=== PATIENT | male | born 1940 | race Caucasian/White ===

== ENCOUNTER 2020-04-06 00:50 | Outpatient (CLI) | payer OTHER, SELFPAY ==
[2020-04-06 19:48] LABS: SARS-CoV-2 RNA PCR Negative
== END 2020-04-06 00:51 | disposition home or self-care (01) ==
LOC: ANHCOVIDDT 00:50
PROVIDERS: PCP Internal Medicine; Visit Provider Internal Medicine Gastroenterology
DX: Z01.818 Encounter for other preprocedural examination (principal); Z20.828 Contact with and (suspected) exposure to other viral communicable diseases
CPT/HCPCS: 87635; C9803; U0003

== ENCOUNTER 2020-04-09 01:19 | Day surgery (SDC) | payer OTHER, SELFPAY ==
[2020-04-02 15:54] VITALS: BMI 26.3
--- NOTE | 2020-04-09 08:17 | WPDANESEPPF ---
Anes - Initial Pre Proc Eval Procedure: Operation Date: 04/09/20 09:30 Proposed Procedures p Esophagogastroduodenoscopy & Colonoscopy - Atif Meza MD Date/Time: 04/09/20 08:17 Surgeon: Atif Meza MD Pre Op Diagnosis: Iron Deficiency Anemia/Rectal Bleeding Patient Data Age: 79 Gender: M Height: 1.83 m Weight: 88 kg Allergies Allergy/AdvReac Type Severity Reaction Status Date / Time COLLAGEN Allergy Intermediate Unknown Uncoded 04/09/20 08:20 Home Medications Medication Instructions Recorded Confirmed Type aspirin 81 mg PO DAILY 04/02/20 04/02/20 History carvedilol 6.25 mg PO DAILY 04/02/20 04/02/20 History clopidogrel 75 mg PO DAILY 04/02/20 04/02/20 History furosemide 20 mg PO DAILY 04/02/20 04/02/20 History losartan 50 mg PO DAILY 04/02/20 04/02/20 History rosuvastatin 10 mg PO DAILY 04/02/20 04/02/20 History spironolactone 25 mg PO DAILY 04/02/20 04/02/20 History sulfamethoxazole-trimethoprim 1 tablet PO DAILY 04/02/20 04/09/20 History Patient hx anesthesia problems: none Family hx anesthesia problems: none PMFSH Past Medical History Medical History (Updated 04/09/20 @ 08:25 by Miguel Graves MD) Angina pectoris Atrial fibrillation CAD (coronary artery disease) HTN (hypertension) Hx of myocardial infarction DEONNA on CPAP Osteoarthritis Overweight (BMI 25.0-29.9) Psoriasis PUD (peptic ulcer disease) Surgical History Surgical History (Updated 04/09/20 @ 08:19 by Miguel Graves MD) AICD (automatic cardioverter/defibrillator) present S/P CABG (coronary artery bypass graft) Social History Social History Smoking packs per day: 1 Smoking cigarettes per day: 20.0 Years smoked: 20 Smoking pack-years: 20.00 Smoking status: Former smoker Tobacco type: cigarettes Smoking end date: 05/28/88 Alcohol intake: current Drinks per week: 14 Alcohol use details: HARD LIQUOR Substance use: never Substance use type: does not use Living arrangements: with family Spiritual care concerns: No Anes - Eval Final PreProcedure Day of Procedure 04/09/20 08:17 Patient weight: overweight Heart: regular rate and rhythm Lungs: clear to auscultation and normal air movement Airway: Mallampati scale class II Neurological: alert and oriented Last oral intake: >/= 8 hours ASA classification: III Emergent: no Anesthetic plan: proceed Anesthesia type and monitoring: general GIVS Informed Consent: The patient's anesthetic plan and its attendant risks and benefits were discussed with the patient/family/POA. Questions were solicited and answers provided to the satisfaction of the patient/family/POA.
[2020-04-09 08:22] VITALS: BP 129/58; PULSE 66; RESP 16; TEMP 36.7; O2SAT 100; BMI 26.8
[2020-04-09] MEDS: LACTATED RINGERS 1,000 ML 150 ML IV CONT (08:55)
[2020-04-09] MEDS: BENZOCAINE (*SP) 60 ML SPRAY CAN (HURRICAINE) 1 SPRAY MUCOUS MEM (09:07)
--- NOTE | 2020-04-09 09:11 | WPDGICN ---
Assessment and Plan Assessment and plan (1) GI bleeding: Code(s): K92.2 - Gastrointestinal hemorrhage, unspecified Status: Acute Assessment and Plan: Patient has had bright red blood per rectum for 1 year. Plan is for colonoscopy to assess more thoroughly. Further recommendations will be given after endoscopy. (2) POLI (iron deficiency anemia): Code(s): D50.9 - Iron deficiency anemia, unspecified Status: Acute Assessment and Plan: Patient with iron deficiency anemia. Plan is for both colonoscopy an EGD to assess for source of anemia. Further recommendations will be given after endoscopy. GI Consult Note Consult date/time: 04/09/20 09:11 HPI: Marc Woods is a 79 year old male Seen in evaluation at the request of Dr. Good Dotson, patient reports bright red blood per rectum on a rather daily basis. He states as often a large amount. He denies any abdominal or rectal pain. Symptoms have been present for 1 year. Recently found to have iron deficiency anemia. Patient denies any abdominal pain. He has had no bleeding. Patient reports in the past he had bleeding etiology of this he is unaware of. Review of Systems Review of Systems: All systems reviewed & are unremarkable except as noted in HPI and below PMFSH Past Medical History Medical History (Updated 04/09/20 @ 09:13 by Atif Meza MD) Angina pectoris Atrial fibrillation CAD (coronary artery disease) HTN (hypertension) Hx of myocardial infarction DEONNA on CPAP Osteoarthritis Overweight (BMI 25.0-29.9) Psoriasis PUD (peptic ulcer disease) Surgical History Surgical History (Updated 04/09/20 @ 08:19 by Miguel Graves MD) AICD (automatic cardioverter/defibrillator) present S/P CABG (coronary artery bypass graft) Social History Social History Smoking packs per day: 1 Smoking cigarettes per day: 20.0 Years smoked: 20 Smoking pack-years: 20.00 Smoking status: Former smoker Tobacco type: cigarettes Smoking end date: 05/28/88 Alcohol intake: current Drinks per week: 14 Alcohol use details: HARD LIQUOR Substance use: never Substance use type: does not use Living arrangements: with family Spiritual care concerns: No Meds Home Medications and Allergies Home Medications Medication Instructions Recorded Confirmed Type aspirin 81 mg PO DAILY 04/02/20 04/02/20 History carvedilol 6.25 mg PO DAILY 04/02/20 04/02/20 History clopidogrel 75 mg PO DAILY 04/02/20 04/02/20 History furosemide 20 mg PO DAILY 04/02/20 04/02/20 History losartan 50 mg PO DAILY 04/02/20 04/02/20 History rosuvastatin 10 mg PO DAILY 04/02/20 04/02/20 History spironolactone 25 mg PO DAILY 04/02/20 04/02/20 History sulfamethoxazole-trimethoprim 1 tablet PO DAILY 04/02/20 04/09/20 History Allergies Allergy/AdvReac Type Severity Reaction Status Date / Time COLLAGEN Allergy Intermediate Unknown Uncoded 04/09/20 08:20 Vital Signs Vital Signs - 24 hr 04/09/20 08:22 Temperature 98.0 F Pulse Rate 66 Respiratory Rate 16 Blood Pressure 129/58 L Pulse Oximetry 100 Exam Narrative: Exam Narrative: Physical exam reveals patient to be alert. Vital signs stable. HEENT exam unremarkable. Lungs are clear to auscultation and percussion. Heart is without murmur or extra sounds. Abdominal exam bowel sounds present soft nontender with no organomegaly. Digital external rectal exam normal.
[2020-04-09 09:39] VITALS: BP 89/53; PULSE 65; RESP 20; O2SAT 100
[2020-04-09 09:49] VITALS: BP 99/61; PULSE 65; RESP 16; O2SAT 100
[2020-04-09 09:59] VITALS: BP 102/59; PULSE 67; RESP 20; O2SAT 100
== END 2020-04-09 10:31 | disposition home or self-care (01) ==
PROVIDERS: PCP Internal Medicine; Visit Provider Internal Medicine Gastroenterology
PROC: 0DJ08ZZ Inspection of Upper Intestinal Tract, Via Natural or Artificial Opening Endoscopic (ICD-10-PCS; CPT 43235; principal; 2020-04-09 09:30)
DX: K26.9 Duodenal ulcer, unspecified as acute or chronic, without hemorrhage or perforation (principal); D50.9 Iron deficiency anemia, unspecified; I48.91 Unspecified atrial fibrillation; I25.10 Atherosclerotic heart disease of native coronary artery without angina pectoris; I10 Essential (primary) hypertension; I25.2 Old myocardial infarction; G47.33 Obstructive sleep apnea (adult) (pediatric); L40.9 Psoriasis, unspecified; Z95.1 Presence of aortocoronary bypass graft; Z95.810 Presence of automatic (implantable) cardiac defibrillator; Z87.891 Personal history of nicotine dependence; Z79.82 Long term (current) use of aspirin; Z79.02 Long term (current) use of antithrombotics/antiplatelets
CPT/HCPCS: 43239; 87081; J2704; J7120

== ENCOUNTER 2022-06-01 15:05 | Emergency (ER) | payer OTHER, SELFPAY ==
[2022-06-01] VITALS (14 sets, daily range): BP systolic 101–144; BP diastolic 49–74; PULSE 65–79; RESP 15–22; TEMP 36.3; O2SAT 96–100
--- NOTE | ~2022-06-01 | CT_ITS ---
EXAMINATION: CT abdomen pelvis w con DATE: 06/01/2022 18:00 INDICATION: Abdominal pain TECHNIQUE: Computed tomography (CT) of the abdomen and pelvis was performed with 100 cc Omnipaque 350 intravenous contrast. The dose-length product was 619.59 mGy-cm. Automated exposure control and iter ative reconstruction technique were employed. COMPARISON: CT dated 10/02/2013. FINDINGS: Cardiomegaly. Chronic right pleural thickening with calcification. There is dependent atele ctasis. Moderate diffuse atherosclerosis of the aorta without evidence for aneurysm. There is a fat-c ontaining umbilical hernia. There is a fat-containing right inguinal hernia. Fatty infiltration of the liver. There are gallstones. The spleen contains calcified granulomas. The pancreas, adrenal glands and kidneys are unremarkable. Nonobstructive bowel gas pattern. Bladder wall is mildly thickened with subtle perivesical infiltration. Consider cystitis in the appropriate clini kalia setting. No lymphadenopathy. No free air or free fluid. Moderate-severe lumbar spondylosis. There is a duodenal diverticulum. Small sclerotic lesion left ilium unchanged, consistent with bone island . Moderate osteoarthritis of the hips. IMPRESSION: 1. Thickened bladder wall with mild perivesical infiltration. Consider cystitis in the appropriate cl inical setting. 2: Fat-containing umbilical and right inguinal hernias. 3: Cholelithiasis. Reviewed, dictated and finalized at location A. [employer] IMPRESSION: 1. Thickened bladder wall with mild perivesical infiltration. Consider cystitis in the appropriate clinical setting. 2: Fat-containing umbilical and right inguinal hernias. 3: Cholelithiasis.
--- NOTE | 2022-06-01 15:17 | ECG_ITS ---
Measurements Intervals [place] Rate: 69 P: 261 LA: 172 QRS: -80 QRSD: 165 T: 82 QT: 495 QTc: 532 Interpretive Statements ELECTRONIC ATRIAL PACEMAKER WITH INHIBITION ELECTRONIC VENTRICULAR PACEMAKER VENTRICULAR PREMATURE COMPLEXES BASELINE ARTIFACT- I, II, AVR NO FURTHER INTERPRETATION IS POSSIBLE ATYPICAL ECG NO PREVIOUS ECG AVAILABLE FOR COMPARISON Electronically Signed On 06-01-2022 19:03:00 [employer] by Yohan Miles D.O.
--- NOTE | 2022-06-01 15:27 | ED.GENADULT ---
HPI - General Adult General Chief complaint: Nausea/Vomiting/Diarrhea Stated complaint: sympotomatic bradycardic, N/V Time Seen by Provider: 06/01/22 15:14 Source: patient and EMS Mode of arrival: EMS Limitations: dementia History of Present Illness HPI narrative: Patient is 81 years old white male, not feeling well for over 1 week, tired, not feeling right. Vomited once 48 hours ago, vomited a lot prior to arrival to the emergency room. No diarrhea, no fever, no chills. Patient started on dementia medications 3 days ago and 1 week ago. Patient is DNR, self cath, on aspirin, Plavix, drinks occasionally, no smoking. Patient EMT reported that patient heart rate was in the 40s in the ambulance. On arrival to the emergency room heart rate is in the 70s. Currently patient denying any symptoms, feeling back to normal. He denies any chest pain, palpitation, shortness of breath, lightheadedness or dizziness. EKG on arrival to the emergency room showed electronic atrial pacemaker, electronic ventricular pacemaker, abnormal rhythm EKG. Related Data Home Medications Medication Instructions Recorded Confirmed aspirin 81 mg tablet 81 mg PO DAILY 04/02/20 01/05/21 carvedilol 6.25 mg tablet 6.25 mg PO DAILY 04/02/20 01/05/21 clopidogrel 75 mg tablet 75 mg PO DAILY 04/02/20 01/05/21 furosemide 40 mg tablet 20 mg PO DAILY 04/02/20 01/05/21 losartan 50 mg tablet 50 mg PO DAILY 04/02/20 01/05/21 rosuvastatin 10 mg tablet 10 mg PO DAILY 04/02/20 01/05/21 spironolactone 25 mg tablet 25 mg PO DAILY 04/02/20 01/05/21 sulfamethoxazole 800 1 tablet PO DAILY 04/02/20 01/05/21 mg-trimethoprim 160 mg tablet alprazolam 0.5 mg tablet 0.5 mg PO DAILY 01/05/21 01/05/21 clobetasol 0.05 % topical gel 1 applic topical DAILY 01/05/21 01/05/21 fluticasone propionate 50 1 spray intranasal DAILY 01/05/21 01/05/21 mcg/actuation nasal spray,suspension nitroglycerin 0.4 mg sublingual 0.4 mg sublingual Q5M PRN 01/05/21 01/05/21 tablet pentoxifylline 400 mg 400 mg PO TID 01/05/21 01/05/21 tablet,extended release sennosides 8.6 mg-docusate sodium 1 tab-cap PO QHS 01/05/21 01/05/21 50 mg tablet (Senna with Docusate Sodium) tacrolimus 0.1 % topical ointment 1 applic topical BID 01/05/21 01/05/21 Allergies Allergy/AdvReac Type Severity Reaction Status Date / Time COLLAGEN Allergy Intermediate Unknown Uncoded 06/01/22 16:39 Review of Systems Review of Systems: All systems reviewed & are unremarkable except as noted in HPI and below PMFSH Past Medical History Medical History Angina pectoris Atrial fibrillation CAD (coronary artery disease) History of pacemaker HTN (hypertension) Hx of myocardial infarction DEONNA on CPAP Osteoarthritis Overweight (BMI 25.0-29.9) Plantar fasciitis of left foot Psoriasis PUD (peptic ulcer disease) Surgical History Surgical History AICD (automatic cardioverter/defibrillator) present History of vascular surgery S/P CABG (coronary artery bypass graft) Family History Family History Other Heart disease Social History Social History Smoking packs per day: 1 Smoking cigarettes per day: 20.0 Years smoked: 20 Smoking pack-years: 20.00 Smoking status: Former smoker Tobacco type: cigarettes Smoking end date: 05/28/88 Alcohol intake: current Drinks per week: 14 Alcohol use details: HARD LIQUOR Substance use: never Substance use type: does not use Spiritual care concerns: No Exam Narrative: General appearance: Well-developed, well-nourished Skin: Normal color Head: Normocephalic, nontraumatic Eyes: Clear conjunctiva ENT: Oropharynx normal, ears normal, nose normal Neck: Supple, nontender Chest and respiratory: Airway patent, no respiratory distress, no accessory muscle
[2022-06-01] MEDS: ONDANSETRON INJ 4 MG/2 ML VIAL IV PUSH (16:40)
[2022-06-01] MEDS: SODIUM CHLORIDE 0.9% IV 1,000 ML 999 ML IV CONT (16:40)
[2022-06-01 17:04] LABS: Add Urine Microscopic? YES; Appearance Urine Clear (Clear); Bilirubin Urine Negative (Negative); Blood Urine Trace-Intact (Negative); Color Urine Amber (Yellow); Glucose Urine UA Negative (Negative); Ketones Urine Negative (Negative); Leukocyte Esterase Ur Negative LEU/UL (Negative); Nitrate Urine Positive (Negative); Protein Urine Negative (Negative); Specific Grav Ur >= 1.030 (1.001-1.035); Urobilinogen Urine 0.2 mg/dL (<2.0); pH Urine 5.5 (5.0-9.0)
[2022-06-01 17:05] LABS: Basophils Absolute Auto 0.1 K/mm3 (0.0-0.1); Basophils Percent Auto 0.7 % (0.2-1.2); Eosinophils Absolute Auto 0.1 K/mm3 (0-0.3); Hematocrit 43.9 % (42.0-52.0); Hemoglobin 13.5 g/dL (14.0-18.0); Immature Granulocyte Absolute 0.02 K/mm3 (0.00-0.031); Immature Granulocyte Percent A 0.3 % (0-0.5); Immature Platelet Fraction Pct 6.6 % (0.9-11.2); Lymphocytes Absolute Auto 1.05 K/mm3 (0.9-3.2); Lymphocytes Percent Auto 15.3 % (18.3-44.2); Mean Corpuscular HGB Conc 30.8 g/dl (32-36); Mean Corpuscular Hemoglobin 29.1 pg (26-34); Mean Corpuscular Volume 94.6 fl (80-100); Mean Platelet Volume 10.9 fl (7.4-10.4); Monocytes Absolute Auto 0.7 K/mm3 (0.1-0.6); Monocytes Percent Auto 10.5 % (2.6-8.5); Neutrophils Absolute Auto 4.9 K/mm3 (1.3-6.7); Neutrophils Percent Auto 71.2 % (45.5-73.1); Platelet Count Result 136 k/mm3 (150-375); Red Blood Count 4.64 M/mm3 (4.6-6.20); Red Cell Distribution Width 18.6 % (11.5-14.5); White Blood Count 6.9 K/mm3 (4.5-10.0)
[2022-06-01 17:29] LABS: Alanine Aminotransferase 19 U/L (6-50); Albumin Level 4.6 g/dL (3.5-5.1); Alkaline Phosphatase 141 U/L (38-126); Anion Gap 8 mmol/L (8-16); Aspartate Amino Transferase 34 U/L (17-59); Bilirubin,Total 0.8 mg/dL (0.2-1.3); Blood Urea Nitrogen 17 mg/dL (9-20); Calcium 8.7 mg/dL (8.4-10.2); Carbon Dioxide 26 mmol/L (22-30); Chloride 102 mmol/L (98-107); Estimated Glomerular Filt Rate > 60; Glucose 97 mg/dL (65-110); Lipase 235 U/L (23-300); Potassium 4.1 mmol/L (3.4-5.0); Sodium 136 mmol/L (137-145)
[2022-06-01 17:32] LABS: Bacteria Urine 2+ /hpf; Mucus Urine Rare /lpf; RBC Urine 0-2 /hpf (0-2)
[2022-06-01 17:40] LABS: Influenza A QL RT-PCR Negative (Negative); Influenza B QL RT-PCR Negative (Negative); RSV RNA, RT-PCR Negative (Negative); SARS-CoV-2 RNA PCR Negative
== END 2022-06-01 20:25 | disposition home or self-care (01) ==
PROVIDERS: Emergency Provider Emergency Medicine
DX: N39.0 Urinary tract infection, site not specified (principal); Z20.822 Contact with and (suspected) exposure to COVID-19; I48.91 Unspecified atrial fibrillation; I25.10 Atherosclerotic heart disease of native coronary artery without angina pectoris; I25.2 Old myocardial infarction; G47.33 Obstructive sleep apnea (adult) (pediatric); M19.90 Unspecified osteoarthritis, unspecified site; E66.3 Overweight; Z95.810 Presence of automatic (implantable) cardiac defibrillator; Z66 Do not resuscitate; Z87.11 Personal history of peptic ulcer disease; Z79.02 Long term (current) use of antithrombotics/antiplatelets; Z79.82 Long term (current) use of aspirin; Z95.1 Presence of aortocoronary bypass graft; K80.20 Calculus of gallbladder without cholecystitis without obstruction; K42.9 Umbilical hernia without obstruction or gangrene; K40.90 Unilateral inguinal hernia, without obstruction or gangrene, not specified as recurrent
CPT/HCPCS: 36415; 74177; 80053; 81001; 83690; 85025; 85055; 87637; 93005; 96361; 96365; 96375; 99284; J0696; J2405; J7030; Q9967

== ENCOUNTER 2022-10-17 12:41 | Observation (INO) | payer OTHER, SELFPAY ==
[2022-10-17] VITALS (16 sets, daily range): BP systolic 86–129; BP diastolic 52–87; PULSE 65–75; RESP 16–20; TEMP 38.2; O2SAT 93–100; BMI 24.0
--- NOTE | ~2022-10-17 | US_ITS ---
US renal BI 10/18/2022 09:44 Procedure: Realtime transabdominal ultrasound of the kidneys and bladder. Indication: Acute renal insufficiency Comparison: No prior studies for comparison. Findings: Renal echotexture is normal bilaterally without hydronephrosis, contour deforming mass or r enal calculus. There is a right renal cyst measuring 1.4 cm The right kidney measures 11.9 cm and lef t kidney measures 12.1 cm. Bladder within normal limits. Impression: 1: Right renal cyst measuring 1.4 cm. Reviewed, dictated and finalized at location B. Impression: 1: Right renal cyst measuring 1.4 cm.
--- NOTE | ~2022-10-17 | XR_ITS ---
EXAMINATION: XR chest 2V DATE: 10/17/2022 14:08 INDICATION: Weakness. TECHNIQUE: Frontal and lateral views of the chest were obtained. COMPARISON: CT abdomen and pelvis 06/01/2022 FINDINGS: There are calcified pleural plaques on the right. There are airspace opacities in all lung zones. No pleural effusion or pneumothorax. Cardiomegaly is noted. Median sternotomy wires and medias tinal surgical clips are seen, likely from prior coronary artery bypass grafting. There is a left bent[address] st wall pacer with leads in the right atrium and right ventricle. IMPRESSION: 1. Diffuse lung disease, consistent with pulmonary edema versus pneumonia. 2. Cardiomegaly. Reviewed, dictated and finalized at location A.
--- NOTE | 2022-10-17 13:26 | ECG_ITS ---
Measurements Intervals [place] Rate: 67 P: 70 MT: 179 QRS: -90 QRSD: 155 T: 80 QT: 451 QTc: 476 Interpretive Statements ELECTRONIC ATRIAL PACEMAKER WITH INHIBITION ELECTRONIC VENTRICULAR PACEMAKER VENTRICULAR PREMATURE COMPLEXES BASELINE ARTIFACT- II, III, AVL, AVF, V1-V6 NO FURTHER INTERPRETATION IS POSSIBLE ATYPICAL ECG COMPARED TO ECG 06/01/2022 15:04:46 NO SIGNIFICANT CHANGES Electronically Signed On 10-17-2022 14:26:21 CDT by Yohan Miles D.O.
[2022-10-17 14:25] LABS: Basophils Absolute Auto 0.1 K/mm3 (0.0-0.1); Basophils Percent Auto 0.6 % (0.2-1.2); Eosinophils Absolute Auto 0.3 K/mm3 (0-0.3); Eosinophils Percent Auto 2.6 % (0-4.4); Hemoglobin 14.5 g/dL (14.0-18.0); Immature Granulocyte Absolute 0.04 K/mm3 (0.00-0.031); Immature Granulocyte Percent A 0.4 % (0-0.5); Lymphocytes Percent Auto 6.2 % (18.3-44.2); Mean Corpuscular HGB Conc 34.5 g/dl (32-36); Mean Corpuscular Hemoglobin 34.4 pg (26-34); Mean Corpuscular Volume 99.5 fl (80-100); Mean Platelet Volume 10.3 fl (7.4-10.4); Monocytes Absolute Auto 1.3 K/mm3 (0.1-0.6); Monocytes Percent Auto 12.9 % (2.6-8.5); Neutrophils Absolute Auto 7.5 K/mm3 (1.3-6.7); Neutrophils Percent Auto 77.3 % (45.5-73.1); Platelet Count Result 167 k/mm3 (150-375); Red Blood Count 4.22 M/mm3 (4.6-6.20); Red Cell Distribution Width 12.8 % (11.5-14.5); White Blood Count 9.7 K/mm3 (4.5-10.0)
[2022-10-17 14:37] LABS: Alanine Aminotransferase 98 U/L (6-50); Albumin Level 3.6 g/dL (3.5-5.1); Alkaline Phosphatase 232 U/L (38-126); Anion Gap 7 mmol/L (8-16); Aspartate Amino Transferase 130 U/L (17-59); Bilirubin,Total 1.3 mg/dL (0.2-1.3); Blood Urea Nitrogen 51 mg/dL (9-20); Calcium 8.6 mg/dL (8.4-10.2); Carbon Dioxide 28 mmol/L (22-30); Chloride 98 mmol/L (98-107); Estimated CRCL calculation 40 ml/min; Estimated Glomerular Filt Rate 49; Glucose 117 mg/dL (65-110); Potassium 4.4 mmol/L (3.4-5.0); Sodium 133 mmol/L (137-145)
[2022-10-17 14:39] LABS: Appearance Urine Clear (Clear); Bilirubin Urine Negative (Negative); Blood Urine Negative (Negative); Color Urine Dark Yellow (Yellow); Glucose Urine UA Negative (Negative); Ketones Urine Negative (Negative); Leukocyte Esterase Ur 1+ LEU/UL (Negative); Nitrate Urine Negative (Negative); Protein Urine Trace mg/dL (Negative); RBC Urine 0-2 /hpf (0-2); Specific Grav Ur 1.014 (1.001-1.035); Squamous Epithelial Cell Urine None seen /hpf (Few); Urobilinogen Urine 0.2 mg/dL (<2.0)
[2022-10-17 14:44] LABS: Bacteria Urine 1+ /hpf
[2022-10-17 14:46] LABS: Renal Epithelial Cells Urine Rare /hpf (None Seen)
[2022-10-17 14:57] LABS: Add Urine Microscopic? YES
[2022-10-17] MEDS: SODIUM CHLORIDE 0.9% IV 1,000 ML 125 ML IV CONT (15:31)
--- NOTE | 2022-10-17 18:24 | ED.GENADULT ---
HPI - General Adult General Chief complaint: Weakness Stated complaint: weakness Time Seen by Provider: 10/17/22 14:42 Source: patient and family Mode of arrival: wheelchair Limitations: no limitations History of Present Illness HPI narrative: 82-year-old with a history of CAD, AF was brought in by family with complaints of not eating, not drinking for past several days. Family states that he is withdrawn and he has been extremely tired over the last few weeks. His friend who is at bedside states that ever since his has few months ago he has been extremely depressed and does not want to live any longer. Patient however denies any chest pain, shortness of breath or abdominal pain. Onset (ago): week(s) Associated symptoms: denies other symptoms Related Data Home Medications Medication Instructions Recorded Confirmed aspirin 81 mg tablet 81 mg PO DAILY 04/02/20 01/05/21 carvedilol 6.25 mg tablet 6.25 mg PO DAILY 04/02/20 01/05/21 clopidogrel 75 mg tablet 75 mg PO DAILY 04/02/20 01/05/21 furosemide 40 mg tablet 20 mg PO DAILY 04/02/20 01/05/21 losartan 50 mg tablet 50 mg PO DAILY 04/02/20 01/05/21 rosuvastatin 10 mg tablet 10 mg PO DAILY 04/02/20 01/05/21 spironolactone 25 mg tablet 25 mg PO DAILY 04/02/20 01/05/21 sulfamethoxazole 800 1 tablet PO DAILY 04/02/20 01/05/21 mg-trimethoprim 160 mg tablet alprazolam 0.5 mg tablet 0.5 mg PO DAILY 01/05/21 01/05/21 clobetasol 0.05 % topical gel 1 applic topical DAILY 01/05/21 01/05/21 fluticasone propionate 50 1 spray intranasal DAILY 01/05/21 01/05/21 mcg/actuation nasal spray,suspension nitroglycerin 0.4 mg sublingual 0.4 mg sublingual Q5M PRN 01/05/21 01/05/21 tablet pentoxifylline 400 mg 400 mg PO TID 01/05/21 01/05/21 tablet,extended release sennosides 8.6 mg-docusate sodium 1 tab-cap PO QHS 01/05/21 01/05/21 50 mg tablet (Senna with Docusate Sodium) tacrolimus 0.1 % topical ointment 1 applic topical BID 01/05/21 01/05/21 Allergies Allergy/AdvReac Type Severity Reaction Status Date / Time COLLAGEN Allergy Intermediate Unknown Uncoded 06/01/22 16:39 Review of Systems Review of Systems: All systems reviewed & are unremarkable except as noted in HPI and below Constitutional: Constitutional: Reports no additional constitutional complaints Eyes: Eyes: Reports no additional eye complaints ENT: Reports system reviewed and no additional complaints, except as documented Cardiovascular: Cardiovascular: Reports no additional cardiovascular complaints Respiratory: Respiratory: Reports no additional respiratory complaints Gastrointestinal: Gastrointestinal: Reports no additional gastrointestinal complaints Musculoskeletal: Musculoskeletal: Reports no additional musculoskeletal complaints Integumentary/Breasts: Skin/Breast: Reports system reviewed and no additional complaints, except as docu PMFSH Past Medical History Medical History Angina pectoris Atrial fibrillation CAD (coronary artery disease) History of pacemaker HTN (hypertension) Hx of myocardial infarction DEONNA on CPAP Osteoarthritis Overweight (BMI 25.0-29.9) Plantar fasciitis of left foot Psoriasis PUD (peptic ulcer disease) Surgical History Surgical History AICD (automatic cardioverter/defibrillator) present History of vascular surgery S/P CABG (coronary artery bypass graft) Family History Family History Other Heart disease Social History Social History Smoking packs per day: 1 Smoking cigarettes per day: 20.0 Years smoked: 20 Smoking pack-years: 20.00 Smoking status: Former smoker Tobacco type: cigarettes Smoking end date: 05/28/88 Alcohol intake: current Drinks per week: 14 Alcohol use details: HARD LIQUOR Substance use: never Sub
[2022-10-17] MEDS: ACETAMINOPHEN 325 MG TABLET 650 MG PO (19:27)
--- NOTE | 2022-10-17 21:24 | ADMGEN ---
This patient, Marc Woods, was admitted to 3 Med Surg Room 312-01. Patient/family oriented to hospital policies and general routines including ID bracelet, bed and alarms, visiting hours, pain management, procedures, bathroom and other care routines, personal items, smoking policy, room service/diet, and visiting hours. Information on how to activate the Rapid Response Team has been discussed. Patient/Family are encouraged to report perceived risks to care and to ask questions if they do not understand what they are told or what they should do.
[2022-10-17] MEDS: SODIUM CHLORIDE 0.9% IV 1,000 ML 75 ML IV CONT (21:30)
[2022-10-17] MEDS: SODIUM CHLORIDE 0.9% IV 250 ML 999 ML IV CONT (22:50)
--- NOTE | 2022-10-17 23:39 | PM.IMHP ---
H&P: HPI History of Present Illness Date/Time: 10/17/22 23:39 Chief Complaint: weakness Narrative: This is an 82-year-old male with past medical history significant for coronary artery disease, atrial fibrillation, rate controlled anticoagulated, obstructive sleep apnea on CPAP, peptic ulcer disease, psoriasis, AICD. patient was brought to the emergency room due to family's concerns after patient has not been taking care of himself not eating properly not drinking properly has been depressed after his several months ago. Patient states that he has been in an out of hospitals and feels very weak. Preliminary workup was significant for chemistry pack BUN and creatinine were 51 and 1.4 respectively, AST 130, ALT 98, alk phos 232, patient tested negative for COVID-19, influenza type A, influenza type B and RSV. A chest x-ray was reported as: EXAMINATION: XR chest 2V DATE: 10/17/2022 14:08 INDICATION: Weakness. TECHNIQUE: Frontal and lateral views of the chest were obtained. COMPARISON: CT abdomen and pelvis 06/01/2022 FINDINGS: There are calcified pleural plaques on the right. There are airspace opacities in all lung zones. No pleural effusion or pneumothorax. Cardiomegaly is noted. Median sternotomy wires and mediastinal surgical clips are seen, likely from prior coronary artery bypass grafting. There is a left chest wall pacer with leads in the right atrium and right ventricle. IMPRESSION: 1. Diffuse lung disease, consistent with pulmonary edema versus pneumonia. 2. Cardiomegaly. Review of Systems Review of Systems: generalized weakness ROS unobtainable: Yes unobtainable due to mental status ( depression) Constitutional: Comments: patient could not really contribute with meaningful history but stated that he has been feeling very weak and has been in and out of hospitals for the last several months ON LICENSE OF [facility] Past Medical History Medical History Angina pectoris Atrial fibrillation CAD (coronary artery disease) History of pacemaker HTN (hypertension) Hx of myocardial infarction DEONNA on CPAP Osteoarthritis Overweight (BMI 25.0-29.9) Plantar fasciitis of left foot Psoriasis PUD (peptic ulcer disease) Surgical History Surgical History AICD (automatic cardioverter/defibrillator) present History of vascular surgery S/P CABG (coronary artery bypass graft) Family History Family History Other Heart disease Social History Social History Smoking packs per day: 1 Smoking cigarettes per day: 20.0 Years smoked: 10 Smoking pack-years: 10.00 Smoking status: Former smoker Tobacco type: cigarettes Smoking end date: 05/28/88 Alcohol intake: current Drinks per week: 7 Alcohol use details: HARD LIQUOR Substance use: never Substance use type: does not use Lack of Transportation: No Lack of Food: Never True Current Housing: I Have Housing Concerned About Future Housing: No Difficulty Paying Gas/Electric Bills: No Difficulty Paying for Meds: No Currently Unemployed: No Education: High School Diploma/GED Difficulty w/ Childcare or Family Care: No Living arrangements: with family Spiritual care concerns: No Meds Home Medications and Allergies Home Medications Medication Instructions Recorded Confirmed Type aspirin 81 mg tablet 81 mg PO DAILY 04/02/20 10/17/22 History carvedilol 6.25 mg tablet 6.25 mg PO DAILY 04/02/20 10/17/22 History furosemide 40 mg tablet 20 mg PO DAILY 04/02/20 10/17/22 History losartan 50 mg tablet 50 mg PO DAILY 04/02/20 10/17/22 History rosuvastatin 10 mg tablet 10 mg PO DAILY 04/02/20 10/17/22 History spironolactone 25 mg tablet 25 mg PO DAILY 04/02/20 10/17/22 History clobetasol 0.05 % topical gel 1 applic topi
[2022-10-18] VITALS (14 sets, daily range): BP systolic 97–147; BP diastolic 47–74; PULSE 71–98; RESP 16–20; TEMP 35.9–36.9; O2SAT 92–100; BMI 24.0
--- NOTE | 2022-10-18 00:21 | PC.NURSE ---
was notified that patient straight caths himself every day and has done so for many years. The MD said that we can see how he does the first time he straight caths himself and take it from there.
[2022-10-18] MEDS: ALBUTEROL SULFATE NEB 2.5 MG/3 ML INH INHALATION ×4 (01:17→20:23)
[2022-10-18] MEDS: CEFEPIME 2 GM/NS 50 ML 2 GM/50 ML BAG IVPB ×2 (01:31→12:37)
[2022-10-18] MEDS: AZITHROMYCIN 500 MG/NS 250 ML 500 MG/250 ML BAG 250 MG IVPB ×2 (02:48→20:49)
[2022-10-18 06:31] LABS: Anion Gap 7 mmol/L (8-16); Blood Urea Nitrogen 43 mg/dL (9-20); Calcium 7.9 mg/dL (8.4-10.2); Carbon Dioxide 21 mmol/L (22-30); Chloride 103 mmol/L (98-107); Estimated CRCL calculation 50 ml/min; Estimated Glomerular Filt Rate > 60; Glucose 120 mg/dL (65-110); Potassium 3.6 mmol/L (3.4-5.0); Sodium 131 mmol/L (137-145)
[2022-10-18 07:35] LABS: Basophils Percent Auto 0.2 % (0.2-1.2); Eosinophils Absolute Auto 0.2 K/mm3 (0-0.3); Eosinophils Percent Auto 2.2 % (0-4.4); Hematocrit 37.7 % (42.0-52.0); Hemoglobin 12.8 g/dL (14.0-18.0); Immature Granulocyte Absolute 0.03 K/mm3 (0.00-0.031); Immature Granulocyte Percent A 0.4 % (0-0.5); Lymphocytes Absolute Auto 0.46 K/mm3 (0.9-3.2); Lymphocytes Percent Auto 5.6 % (18.3-44.2); Mean Corpuscular Hemoglobin 33.9 pg (26-34); Mean Corpuscular Volume 99.7 fl (80-100); Mean Platelet Volume 10.1 fl (7.4-10.4); Monocytes Absolute Auto 0.9 K/mm3 (0.1-0.6); Monocytes Percent Auto 11.1 % (2.6-8.5); Neutrophils Absolute Auto 6.6 K/mm3 (1.3-6.7); Neutrophils Percent Auto 80.5 % (45.5-73.1); Platelet Count Result 164 k/mm3 (150-375); Red Blood Count 3.78 M/mm3 (4.6-6.20); White Blood Count 8.2 K/mm3 (4.5-10.0)
[2022-10-18] MEDS: FLUTICASONE PROPIONATE 0.05% NA SPR 16 GM BTL (*BKC) 1 SPRAY NASAL (09:24)
[2022-10-18] MEDS: cilostazoL 100 MG TABLET PO ×2 (09:24→17:08)
[2022-10-18] MEDS: APIXABAN 5 MG TABLET PO ×2 (09:24→17:08)
[2022-10-18] MEDS: carvediloL 6.25 MG TABLET PO ×2 (09:24→20:49)
[2022-10-18] MEDS: ASPIRIN 81 MG ENTERIC TABLET PO (09:25)
--- NOTE | 2022-10-18 17:04 | PM.IMPN ---
Progress Note: A&P Assessment and Plan (1) Healthcare-associated pneumonia: Code(s): J18.9 - Pneumonia, unspecified organism Status: Acute Assessment and Plan: Patient has been feeling very weak related to poor oral intake. He was evaluated in the ED with chest x-ray showing diffuse lung disease consistent with edema versus pneumonia. Patient has a normal white count. He has a cough but the power of chief warden states this has improved. He did have low-grade fever. Blood culture and MRSA nasal swab have been collected and are pending. Will continue current IV antibiotics for now. Speech therapy consult. Check Covid/influenza/RSV (2) Weakness: Code(s): R53.1 - Weakness Status: Acute Assessment and Plan: Likely secondary to deconditioning, poor oral intake and acute illness Statin on hold PT/OT (3) ABDIRAHMAN (acute kidney injury): Code(s): N17.9 - Acute kidney failure, unspecified Status: Acute Assessment and Plan: Patient with poor per orally intake. ABDIRAHMAN notes with BUN 51 and Cr 1.4. Lasix, spironolactone and losartan held With IV fluids, Cr down to 1.1. Continue IV fluids for today. (4) Dehydration: Code(s): E86.0 - Dehydration Status: Acute Assessment and Plan: As above (5) CAD (coronary artery disease): Code(s): I25.10 - Atherosclerotic heart disease of [place] coronary artery without angina pectoris Status: Acute Assessment and Plan: Patient is chest pain-free continue to monitor (6) DEONNA on CPAP: Code(s): G47.33 - Obstructive sleep apnea (adult) (pediatric); Z99.89 - Dependence on other enabling machines and devices Status: Acute Assessment and Plan: Order CPAP (7) AICD (automatic cardioverter/defibrillator) present: Code(s): Z95.810 - Presence of automatic (implantable) cardiac defibrillator Status: Acute Assessment and Plan: EKG showing paced rhythm. (8) Atrial fibrillation: Code(s): I48.91 - Unspecified atrial fibrillation Status: Acute Assessment and Plan: Paced. Continue Coreg and Eliquis Plan Patient self catheterizes at home - Mcdonald placed since he is having trouble DVT Prophylaxis - Eliquis Code status - Full Disposition - He and POA want him to return home. POA wants to talk with someone about hospice. Patient is aware of what hospice means and is also in agreement. Care coordination consult Subjective Date/time seen: 10/18/22 17:04 Interval history: 82yo male with AFib, CAD, DEONNA, psoriasis, and AICD/PM here for weakness. Assuming care. Chart reviewed. Patient is alert but mildly confused. His caregivers present who is also his power of chief warden. He states patient has ?given up?. Patient has not been eating. Patient denies any suicidal ideation. He has been having a cough but this actually has been improving prior to admission. Patient has just been extremely weak. He does self catheterization normally but has been unable to do so. The power of chief warden states that they have nursing staff that comes and helps the patient 18/12. Power of chief warden does not want the patient to go to a rehab or halfway. Patient is not agreeable to go to a rehab facility. Review of Systems Review of Systems: ROS unobtainable: Yes unobtainable due to mental status Exam Narrative: Tm 100.8 98.3 103/60 73 16 97% ra Gen - NARD Chest -left greater than right inspiratory crackles CV - RRR S1/S2 Abd - Soft, NT/ND, Positive BS -Mcdonald secured draining clear yellow urine Ext - No pedal edema Neuro - Alert and oriented x2 Psych - Nml mood and affect Skin - Warm and dry. Psoriatic plaque noted on the right knee. Objective Data Vital Signs Vital Signs: Vital Signs - 24 hr 10/17/22 17:16 10/17/22 17:32 10/17/22 17:45 Temperature Pulse Rate 75 74 74 Respiratory Rate 18 18 17 Blood Pressure 114/78 112/63
[2022-10-18] MEDS: SENNA/DOCUSATE SODIUM TABLET 1 TAB PO (20:49)
[2022-10-18 22:49] LABS: Influenza A QL RT-PCR Negative (Negative); Influenza B QL RT-PCR Negative (Negative); RSV RNA, RT-PCR Negative (Negative); SARS-CoV-2 RNA PCR Negative (Negative)
[2022-10-19] VITALS (13 sets, daily range): BP systolic 96–136; BP diastolic 61–77; PULSE 66–89; RESP 16–24; TEMP 36.4–37.1; O2SAT 94–96
[2022-10-19] MEDS: CEFEPIME 2 GM/NS 50 ML 2 GM/50 ML BAG IVPB ×2 (00:06→11:53)
[2022-10-19] MEDS: SODIUM CHLORIDE 0.9% IV 1,000 ML 60 ML IV CONT (00:07)
[2022-10-19] MEDS: VANCOMYCIN 1,250 MG/NS 250 ML 1,250 MG/250 ML BAG 166.67 MG IVPB (01:15)
[2022-10-19 06:30] LABS: Basophils Percent Auto 0.4 % (0.2-1.2); Eosinophils Absolute Auto 0.2 K/mm3 (0-0.3); Eosinophils Percent Auto 2.3 % (0-4.4); Hematocrit 34.6 % (42.0-52.0); Hemoglobin 11.7 g/dL (14.0-18.0); Immature Granulocyte Absolute 0.04 K/mm3 (0.00-0.031); Immature Granulocyte Percent A 0.5 % (0-0.5); Lymphocytes Absolute Auto 0.42 K/mm3 (0.9-3.2); Lymphocytes Percent Auto 5.6 % (18.3-44.2); Mean Corpuscular HGB Conc 33.8 g/dl (32-36); Mean Corpuscular Hemoglobin 33.5 pg (26-34); Mean Corpuscular Volume 99.1 fl (80-100); Mean Platelet Volume 10.2 fl (7.4-10.4); Monocytes Absolute Auto 0.9 K/mm3 (0.1-0.6); Monocytes Percent Auto 12.6 % (2.6-8.5); Neutrophils Absolute Auto 5.9 K/mm3 (1.3-6.7); Neutrophils Percent Auto 78.6 % (45.5-73.1); Platelet Count Result 164 k/mm3 (150-375); Red Blood Count 3.49 M/mm3 (4.6-6.20); Red Cell Distribution Width 12.7 % (11.5-14.5); White Blood Count 7.5 K/mm3 (4.5-10.0)
[2022-10-19 06:50] LABS: Alanine Aminotransferase 88 U/L (6-50); Albumin Level 2.8 g/dL (3.5-5.1); Alkaline Phosphatase 232 U/L (38-126); Anion Gap 8 mmol/L (8-16); Aspartate Amino Transferase 109 U/L (17-59); Blood Urea Nitrogen 23 mg/dL (9-20); Calcium 7.8 mg/dL (8.4-10.2); Carbon Dioxide 20 mmol/L (22-30); Chloride 102 mmol/L (98-107); Estimated CRCL calculation 68 ml/min; Estimated Glomerular Filt Rate > 60; Glucose 113 mg/dL (65-110); Magnesium 1.8 mg/dL (1.6-2.3); Phosphorus 2.6 mg/dL (2.5-4.5); Potassium 3.6 mmol/L (3.4-5.0); Sodium 130 mmol/L (137-145)
[2022-10-19] MEDS: ALBUTEROL SULFATE NEB 2.5 MG/3 ML INH INHALATION ×2 (07:32→13:16)
[2022-10-19] MEDS: cilostazoL 100 MG TABLET PO ×2 (08:27→17:16)
[2022-10-19] MEDS: carvediloL 6.25 MG TABLET PO (08:27)
[2022-10-19] MEDS: ASPIRIN 81 MG ENTERIC TABLET PO (08:32)
[2022-10-19] MEDS: APIXABAN 5 MG TABLET PO ×2 (08:32→17:16)
--- NOTE | 2022-10-19 09:11 | PCSTNOTE ---
Amaya Ramirez, reported that patient is not up to the bedside swallow eval and is expected to go to hospice today. 9:[address] Flaherty notified of condition.
--- NOTE | 2022-10-19 09:29 | PCSTNOTE ---
Dr. Flaherty allowed cancellation of Bedside Swallow Evaluation due to Hospice condition.
--- NOTE | 2022-10-19 12:30 | PM.DS ---
DS: Admitting Diagnosis Discharge Date 10/19/22 Admitting Diagnosis Weakness DS: Discharge Diagnosis Discharge Diagnosis (1) Healthcare-associated pneumonia: Code(s): J18.9 - Pneumonia, unspecified organism Status: Acute (2) Weakness: Code(s): R53.1 - Weakness Status: Acute (3) ABDIRAHMAN (acute kidney injury): Code(s): N17.9 - Acute kidney failure, unspecified Status: Acute (4) Dehydration: Code(s): E86.0 - Dehydration Status: Acute (5) CAD (coronary artery disease): Code(s): I25.10 - Atherosclerotic heart disease of [place] coronary artery without angina pectoris Status: Acute (6) DEONNA on CPAP: Code(s): G47.33 - Obstructive sleep apnea (adult) (pediatric); Z99.89 - Dependence on other enabling machines and devices Status: Acute (7) AICD (automatic cardioverter/defibrillator) present: Code(s): Z95.810 - Presence of automatic (implantable) cardiac defibrillator Status: Acute (8) Atrial fibrillation: Code(s): I48.91 - Unspecified atrial fibrillation Status: Acute DS: Summary Hospital Course Reason for hospitalization: 82yo male with AFib, CAD, DEONNA, psoriasis, and AICD/PM here for weakness. Please see H&P for details Hospital Course: Patient has been feeling very weak related to poor oral intake.? He was evaluated in the ED with chest x-ray showing diffuse lung disease consistent with edema versus pneumonia.? Patient has a normal white count.? He has a cough but the power of brick yard hand states this has improved.? He did have low-grade fever.? Blood culture NGTD. MRSA nasal swab pending.? He was treated with IV antibiotics. Covid/influenza/RSV swab was negative. Patient with ABDIRAHMAN from poor per orally intake. BUN 51 and Cr 1.4. Lasix, spironolactone and losartan held. With IV fluids, Cr down to 1.1. Patient self catheterizes at home - Mcdonald was placed since he was having trouble performing this. The patient and POA want him to return home. The patient has dementia. POA wanted to talk with someone about hospice. He met with hospice and wished to proceed with hospice care. He also wished to have the ICD turned off. Patient was discharged home on hospice care. Status at Discharge Cognitive/behavioral status at discharge: stable Time Spent with Patient Time attestation: Total time spent providing and/or coordinating discharge services:35 minutes Time spent: Greater than 30 minutes Exam Narrative: AF 97.9 96/75 72 24 96% ra Gen - NARD Chest - inspiratory crackles L>R CV - RRR S1/S2 +murmur Abd - Soft, NT/ND, Positive BS -Mcdonald secured draining clear yellow urine Ext - No pedal edema Neuro - Alert but confused Psych - irritated at times Skin - Warm and dry. Psoriatic plaque noted on the right knee. DS: Data Data Completed and Pending Labs on day of discharge: Labs from last 24 hours 10/19/22 10/18/22 05:58 15:00 WBC 7.5 RBC 3.49 L Hgb 11.7 L Hct 34.6 L MCV 99.1 MCH 33.5 MCHC 33.8 RDW 12.7 Plt Count 164 MPV 10.2 Immature Gran % (Auto) 0.5 Neut % (Auto) 78.6 H Lymph % (Auto) 5.6 L [place] % (Auto) 12.6 H Eos % (Auto) 2.3 Baso % (Auto) 0.4 Lymph # (Auto) 0.42 L [place] # (Auto) 0.9 H Eos # (Auto) 0.2 Baso # (Auto) 0.0 Abs Immat Gran (auto) 0.04 H Absolute Neuts (auto) 5.9 Absolute Nucleated RBC 0.0 Nucleated RBC % 0.0 Sodium 130 L Potassium 3.6 Chloride 102 Carbon Dioxide 20 L Anion Gap 8 BUN 23 H D Creatinine 0.80 Estim Creat Clear Calc 68 Estimated GFR > 60 Glucose 113 H Calcium 7.8 L Phosphorus 2.6 Magnesium 1.8 Total Bilirubin 1.0 AST 109 H ALT 88 H Alkaline Phosphatase 232 H Total Protein 6.0 L Albumin 2.8 L Influenza A (RT-PCR) Negative Influenza B (RT-PCR) Negative RSV (RT-PCR) Negative SARS-CoV-2 RNA (RT-PCR) Negative Preliminary micro results at discharge 10/18/22 06:04 Bl
== END 2022-10-19 18:15 | disposition hospice, home (50) ==
LOC: ANHED 18:29 → ANH3MEDSUR 10-19 10:19
PROVIDERS: Admitting Provider Student in an Organized Health Care Education/Training Program; Emergency Provider Family Medicine; Visit Provider Internal Medicine
DX: J18.9 Pneumonia, unspecified organism (principal); R53.1 Weakness; N17.9 Acute kidney failure, unspecified; E86.0 Dehydration; I25.10 Atherosclerotic heart disease of native coronary artery without angina pectoris; Z95.1 Presence of aortocoronary bypass graft; G47.33 Obstructive sleep apnea (adult) (pediatric); Z99.89 Dependence on other enabling machines and devices; Z95.810 Presence of automatic (implantable) cardiac defibrillator; I48.91 Unspecified atrial fibrillation; R63.0 Anorexia; Z68.24 Body mass index [BMI] 24.0-24.9, adult; R53.83 Other fatigue; F32.A Depression, unspecified; Z63.4 Disappearance and death of family member; R41.0 Disorientation, unspecified; I10 Essential (primary) hypertension; N28.1 Cyst of kidney, acquired; Z20.822 Contact with and (suspected) exposure to COVID-19; I25.2 Old myocardial infarction; M72.9 Fibroblastic disorder, unspecified; L40.9 Psoriasis, unspecified; K27.9 Peptic ulcer, site unspecified, unspecified as acute or chronic, without hemorrhage or perforation; Z87.891 Personal history of nicotine dependence; F10.90 Alcohol use, unspecified, uncomplicated; Z79.82 Long term (current) use of aspirin; Z79.02 Long term (current) use of antithrombotics/antiplatelets; Z79.51 Long term (current) use of inhaled steroids; Z79.899 Other long term (current) drug therapy
CPT/HCPCS: 36415; 71046; 76775; 80048; 80053; 81001; 83735; 84100; 85025; 87040; 87081; 87637; 93005; 94640; 96365; 96366; 96367; 96376; 99285; A9270; G0378; J0456; J0692; J3370; J7030